=== PATIENT | female | born 1940 | race Caucasian/White ===

== ENCOUNTER 2022-11-09 08:21 | Inpatient (IN) ==
--- NOTE | 2022-10-13 14:39 | PAT Medication Instructions ---
Medication Instructions Date of Service October 13, 2022 Home Medications acetaminophen 500 mg tablet (Tylenol Extra Strength) 500 mg PO Q6H PRN alprazolam 1 mg tablet 1 mg PO HS dicyclomine 10 mg capsule 10 mg PO QAM hydrochlorothiazide 12.5 mg tablet 12.5 mg PO QAM losartan 100 mg tablet 100 mg PO QAM metoprolol tartrate 25 mg tablet 25 mg PO QAM valacyclovir 1 gram tablet 1,000 mg PO TID DO NOT take the morning of surgery dicyclomine 10 mg capsule 10 mg PO QAM hydrochlorothiazide 12.5 mg tablet 12.5 mg PO QAM losartan 100 mg tablet 100 mg PO QAM Take morning of surgery With a small sip of water, OTHERWISE NOTHING TO EAT OR DRINK AFTER MIDNIGHT: acetaminophen 500 mg tablet (Tylenol Extra Strength) 500 mg PO Q6H PRN(if needed) metoprolol tartrate 25 mg tablet 25 mg PO QAM valacyclovir 1 gram tablet 1,000 mg PO TID Take evening before surgery acetaminophen 500 mg tablet (Tylenol Extra Strength) 500 mg PO Q6H PRN(if needed) alprazolam 1 mg tablet 1 mg PO HS valacyclovir 1 gram tablet 1,000 mg PO TID Other Notes If you have any questions please call us at [phone] or [phone] or [phone] or [phone]
--- NOTE | 2022-10-20 14:20 | Anesthesiology Consultation ---
Date of Service October 20, 2022 Assessment & Plan (1) Encounter for pre-operative examination: - Outpatient joint assessment: Patient is currently scheduled for inpatient pathway. If re-evaluated pending system levels during current pandemic/surgeon requests outpatient pathway, patient is not acceptable candidate for outpatient joint program from anesthesia standpoint. - Case discussed with Dr. Lamb who advised pt is acceptable to proceed without further evaluation or testing from his standpoint. Chart Review Chart Review: Acceptable Risk for Surgery and Patient seen in Pre Admission Testing Teaching & Discussion Pre-Anesthesia Teaching/Discussion Notes: Instructed NPO after midnight before surgery, except medications with 15 cc of water. Medication instructions provided according to the PAT guidelines. History Surgery Operation Date: 11/02/22 08:40 Proposed Procedures p Right Total Knee Arthroplasty - Aneudy Garza DO Height/Weight Height: 4 ft 10.5 in Weight: 50.5 kg Allergies Allergy/AdvReac Type Severity Reaction Status Date / Time acetaminophen [From Percocet] AdvReac Mild Gastrointestinal Verified 10/13/22 10:51 Upset oxycodone [From Percocet] AdvReac Mild Gastrointestinal Verified 10/13/22 10:51 Upset Medications Home Medications Medication Instructions Recorded Confirmed Last Taken acetaminophen 500 mg tablet 500 mg PO Q6H PRN Pain 10/13/22 10/13/22 Unknown (Tylenol Extra Strength) alprazolam 1 mg tablet 1 mg PO HS 10/13/22 10/13/22 Unknown dicyclomine 10 mg capsule 10 mg PO QAM 10/13/22 10/13/22 Unknown hydrochlorothiazide 12.5 mg tablet 12.5 mg PO QAM 10/13/22 10/13/22 Unknown losartan 100 mg tablet 100 mg PO QAM 10/13/22 10/13/22 Unknown metoprolol tartrate 25 mg tablet 25 mg PO QAM 10/13/22 10/13/22 Unknown valacyclovir 1 gram tablet 1,000 mg PO TID 10/13/22 10/13/22 Unknown Past Medical History Medical History (Updated 10/20/22 @ 14:54 by Julianna Portillo PA-C) Anxiety GERD (gastroesophageal reflux disease) controlled, stable per pt Hx of peritonitis s/p hysterectomy > with surgery to repair colon, had been nicked during hyster Hypertension controlled, stable per pt IBS (irritable bowel syndrome) Shingles on back, starting to crust over, will finish treatment today (10/13/22) Tremor head, hands with action/stress-chronic per pt without change or worsening Vertigo Patient denies h/o stroke, seizures, heart attack, heart failure, DM, blood clots or blood transfusions. Exercise / Class Metabolic Activity III < 4 Walking/Shop/Light housework (denies chest discomfort or SOB with usual activities) Past Surgical History Surgical History Fusion of spine lumbar History of cataract surgery bilat History of cholecystectomy History of colonoscopy History of hysterectomy History of surgery on arm right arm with hardware History of tonsillectomy Hx of vein stripping Past Anesthesia History No Family Hx of Anesthesia Complications and Other (slow to wake) History of PONV No Hx of PONV and No Hx of Motion Sickness Social History Smoking Status: Never smoker Do You Dip or Chew Tobacco: No Hx Alcohol Use: No Hx Substance Use: No substance use type: does not use Review of Systems Occasional snoring, denies witnessed apneas. Patient denies chest pain, shortness of breath, dyspnea on exertion, fever, chills, cough, wheezing, or palpitations. Physical Exam Vital Signs Vitals BP 135/80 P 65 TEMP 98.1 SP02 97% on RA RESP 18 Physical Full cervical extension range of motion without pain TMD3.5 finger breadths Mallampati Score 3 Dentition: intact, several caps/crowns; denies chipped or loose teeth, implants or bridges Lungs: normal respiratory effort. Clear throughout to auscultation, no ad ventitious breath sounds Cardiac: regular rate and rhythm, no murmurs noted Carotid arteries: negative bruit bilat Lab Results Anesthesia Preop Results Results Anesthesia Widget: WBC 10.49 K/ul (4.8-10.8) 10/20/22 Hgb 15.2 g/dl (12.0-16.0) 10/20/22 Hct 44.4 % (34.1-44.9) 10/20/22 Plt 248 K/uL (130-400) 10/20/22 Na 137 mmol/L (136-145) 10/20/22 K 3.6 mmol/L (3.5-5.1) 10/20/22 Cl 99 mmol/L (98-107) 10/20/22 CO2 32 mmol/L (21-32) 10/20/22 BUN 29 mg/dl (6-23) H 10/20/22 Creat 0.83 mg/dl (0.6-1.2) 10/20/22 Glucose Level 116 mg/dl (70-99(Fasting)) H 10/20/22 PT 10.6 Seconds (9.0-12.0) 10/20/22 PTT 22.5 Seconds (21.0-31.0) 10/20/22 INR 1.0 (0.9-1.1) 10/20/22 HA1c 5.8 % (4.5-5.6) H 10/20/22 Urine Color Yellow 10/20/22 Urine Appearance Clear (Clear) 10/20/22 Urine pH 7.0 (4.5-7.5) 10/20/22 Urine Specific [place] 1.019 (1.000-1.030) 10/20/22 Urine Protein Negative (Negative) 10/20/22 Urine Glucose (UA) Negative (Negative) 10/20/22 Urine Ketones Negative (Negative) 10/20/22 Urine Blood Negative (Negative) 10/20/22 Urine Nitrite Negative (Negative) 10/20/22 Urine Bilirubin Negative (Negative) 10/20/22 Urine Urobilinogen Negative (Negative) 10/20/22 Urine Leukocyte Esterase Trace (Negative) H 10/20/22 Urine WBC (Auto) 1-5 /hpf (0-5) 10/20/22 Urine RBC (Auto) 5-10 /hpf (0-4) H 10/20/22 Urine Hyaline Casts (Auto) 1-5 /lpf (0-5) 10/20/22 Urine Epithelial Cells (Auto) 20-30 /lpf (0-5) H 10/20/22 Urine Bacteria (Auto) Negative (Negative) 10/20/22 Blood Type A Negative 10/20/22 Antibody Screen NEGATIVE 10/20/22 Testing Electrocardiogram Date: 10/20/22 NSR, rate 66 bpm Chest X-Ray Date: 10/20/22 No prior studies are available for comparison at the time of dictation. The heart is top normal for projection and noting atherosclerotic calcification of the thoracic aorta. There is elevation of the right hemidiaphragm with bibasilar scarring/atelectasis. No airspace consolidation or large pleural effusion is identified. There is no pneumothorax. The skeletal structures are osteopenic. Degenerative change and kyphoscoliosis is seen in the thoracic spine. There are thoracic compression deformities with evidence of prior vertebroplasty arthritic change is seen in the shoulders. There are healed bilateral rib fractures. IMPRESSION: No active disease in the chest. COVID-19 Risk Screen Screening Information COVID-19 Screen Date: 10/20/22 Exposure 21 Days Family/Household +COVID Last 21 Days: No Exposure 10 Days Any COVID Exposure Last 10 Days: No Symptoms Last 10 Days Experienced COVID Sx Last 10 Days: No + COVID 0-90 Days COVID + in Last 0-90 Days: No
--- NOTE | 2022-10-25 09:56 | History & Physical Report ---
Date of Service October 25, 2022 Date of surgery: 11/02/22 Procedure: Right Total Knee Arthroplasty Surgeon: Aneudy Garza Assessment & Plan (1) Arthritis of right knee: Plan: at is point time patient has failed conservative measures like proceed with right total knee replacement. Plan to be discharged home with home health physical therapy x2 weeks. Placed on aspirin 81 mg twice a day for 1 month postop for DVT prophylaxis. We will have a follow-up appointment in our office 2 weeks postop sooner if she is having any problems. Otherwise has no other questions or concerns The risks and benefits have been discussed including, but not limited to, risk o f infection, nerve injury, stiffness, loss of motion, failure to improve, etc. Reasonable outcomes and options of treatment were discussed. An explanation of appropriate alternatives to the procedure that may be advantageous were discussed and their risks and benefits, as well as the risks and benefits of not proceeding with treatment. I offered to answer any additional inquiries concerning the treatment involved. All the patient's questions were answered. The patient is agreeable, understanding of the treatment plan and alternatives, and wishes to proceed with the treatment plan. History of Present Illness Chief Complaint: Right knee pain Primary Care Provider: Madhu Boothe is a pleasant 82 year old female presents for preop evaluation prior to right total knee replacement. She states she is having pain in his knee for man y years now which is gradually worsened and is now affecting her daily activities including walking standing. She tried and failed previous corticosteroid injection as well as viscosupplementation with minimal relief. She tried oral anti-inflammatories and Tylenol as well. At this point time is felt conservative measures would like to proceed with a right total knee replacement Allergies Allergy/AdvReac Type Severity Reaction Status Date / Time acetaminophen [From Percocet] AdvReac Mild Gastrointestinal Verified 10/13/22 1 0:51 Upset oxycodone [From Percocet] AdvReac Mild Gastrointestinal Verified 10/13/22 10:51 Upset Home Medications Medication Instructions Recorded Confirmed Type acetaminophen 500 mg tablet 500 mg PO Q6H PRN Pain 10/13/22 10/13/22 History (Tylenol Extra Strength) alprazolam 1 mg tablet 1 mg PO HS 10/13/22 10/13/22 History dicyclomine 10 mg capsule 10 mg PO QAM 10/13/22 10/13/22 History hydrochlorothiazide 12.5 mg tablet 12.5 mg PO QAM 10/13/22 10/13/22 History losartan 100 mg tablet 100 mg PO QAM 10/13/22 10/13/22 History metoprolol tartrate 25 mg tablet 25 mg PO QAM 10/13/22 10/13/22 History valacyclovir 1 gram tablet 1,000 mg PO TID 10/13/22 10/13/22 History Past Med/Surg History Medical History Anxiety GERD (gastroesophageal reflux disease) controlled, stable per pt Hx of peritonitis s/p hysterectomy > with surgery to repair colon, had been nicked during hyster Hypertension controlled, stable per pt IBS (irritable bowel syndrome) Shingles on back, starting to crust over, will finish treatment today (10/13/22) Tremor head, hands with action/stress-chronic per pt without change or worsening Vertigo Surgical History Fusion of spine lumbar History of cataract surgery bilat History of cholecystectomy History of colonoscopy History of hysterectomy History of surgery on arm right arm with hardware History of tonsillectomy Hx of vein stripping Social History Smoking Status: Never smoker Second Hand Exposure: No; Hx Alcohol Use: No Hx Substance Use: No Preferred Language: Italian Communication Ability: Effective Cord Splicer Required: No Beliefs That Will Affect Care: None Current Living Situation: Spouse Feels Safe at Home: Yes Review of Systems Review of Systems: All systems reviewed & are unremarkable except as noted in HPI & below Constitutional: no fever, no chills and no sweats Respiratory: no cough and no dyspnea Cardiovascular: no chest pain, no dyspnea and no orthopnea Gastrointestinal: no abdominal pain, no nausea and no vomiting Musculoskeletal: as per Subjective / HPI Physical Exam Physical Exam: HT: 4ft 10.5in WT: 50.5kg Constitutional: WD/WN, vitals as above no acute distress Respiratory: normal respiratory effort, lungs clear to auscultation no respiratory distress, no labored breathing and does not use accessory muscles Cardiovascular: RRR, no murmur, no edema Gastrointestinal (Abdomen): normal bowel sounds, soft, nontender, no hepatosplenomegaly Musculoskeletal: Knee: + knee abnormal to inspection (RIGHT KNEE: ), + effusion (+1 effusion), + limited ROM of knee (ROM 0/3/110), + knee ROM with cre pitation, + joint line tenderness (medial joint line) and + Fernando's sign positive; no deformity, no skin erythema, no ecchymosis, no valgus laxity, no varus laxity, anterior drawer test negative, Yahir's sign negative and pivot shift test negative Results & Data Results & Data ([facility]) Diagnostic Findings Right Knee X-ray: Right knee series showing advanced degenerative changes to the right knee, narrowing of the lateral compartment and patello-femoral joint with patellar spurring noted, findings showing joint space narrowing of the lateral compartment and patello-femoral joint, osteophyte formation and subchondral sclerosis noted. overall valgus alignment. no acute bony pathology noted.
[~2022-11-09 08:21] MED LIST: ACETAMINOPHEN 500 MG TAB PO SCH; BUPIVACAINE 0.5 % 5 MG/1 ML PF 10ML VIAL ONE; CeleBREX 200 MG CAP PO SCH; EPINEPHrine INJ 1 MG/ML AMP ONE; FAMOTIDINE 20 MG TAB PO SCH; GABAPENTIN 300 MG CAP PO SCH; LR 500ML BOLUS, THEN 15ML/HR IV SCH; METOCLOPRAMIDE HCL 10 MG TABLET PO SCH; ROPIVACAINE 0.5% 5 MG/ML 30 ML VIAL ONE; ROPIVACAINE 0.5% HCL/PF 150 MG, BUPIVACAINE 0.75% MPF 20 ML, EPINEPHrine 30MG/30ML (OR ... INSTIL SCH; TRANEXAMIC ACID 1,000 MG **IV Intra-op IV SCH; TRANEXAMIC ACID 1,000 MG **IV Pre-op IV SCH; ceFAZolin 2000MG 2,000 MG/15 ML SYR IV SCH; dexAMETHasone 4 MG TAB PO SCH
[2022-11-09] MEDS ORDERED: MIDAZOLAM HCL 1 MG/ML 2ML VIAL ONE (10:10)
[2022-11-09] MEDS ORDERED: ORTHO JOINT ANESTHETIC ONE (12:05)
[2022-11-09] MEDS ORDERED: PROPOFOL IV EMULSION 10 MG/ML 20 ML VIAL IV ONE ×2 (12:18→12:50)
--- NOTE | 2022-11-09 12:33 | History & Physical Bridge Note ---
Date of Service November 09, 2022 History & Physical Bridge Note I have examined the patient, reviewed the History & Physical and in the interval since the performance of the History & Physical I have noted the following changes of clinical significance: no changes noted
[2022-11-09] MEDS ORDERED: PROMETHAZINE HCL 12.5 MG in SODIUM CHLORIDE 0.9% 50 ML IV PRN (12:37)
[2022-11-09] MEDS ORDERED: ONDANSETRON INJ 2 MG/ML 2 ML VIAL IV PRN ×2 (12:37→15:49)
[2022-11-09] MEDS ORDERED: fentaNYL citrate 100 MCG/2 ML VIAL IV PRN (12:37)
[2022-11-09] MEDS ORDERED: HYDROmorphone INJ 1 MG/ML SYRINGE IV PRN (12:37)
[2022-11-09] MEDS ORDERED: ePHEDrine sulfate 50 MG/ML AMP IV PRN (12:37)
[2022-11-09] MEDS ORDERED: ATROPINE SULFATE 0.1 MG/ML 10ML SYR IV PRN (12:37)
--- NOTE | 2022-11-09 13:15 | Operative Report ---
Post Operative Report Pre & Post Diagnosis Operation Date: 11/09/22 10:55 Pre-Op Diagnosis: Primary Osteoarthritis Knee Right Post-Op Diagnosis: Primary Osteoarthritis Knee Right I identified the patient and participated in the time-out.: Yes Procedure Operation Date: 11/09/22 10:55 Actual Procedures p Right Total Knee Arthroplasty(Right) utilizing [employer] journey 2 patient matched total knee arthroplasty size femur 3 tibia to polytwelve patella 26 karen Garza DO Surgeon Aneudy Garza DO Accounting Tutor DANIKA Bronson Estimated Blood Loss 5 Findings Consistent with Post-Op Diagnosis Patient presents with severe end-stage tricompartmental DJD varus alignment subchondral sclerosis marginal osteophytes for a total knee arthroplasty patient's failed attempted conservative management Specimens Bone and cartilage Drains Medium bore Hemovac Anesthesia Type MAC Epidural Regional Complications none Disposition Accompanied Patient To Recovery: No Disposition: Recovery Room Indications Patient presents after failed attempted conservative management occluding physical therapy anti-inflammatories relative rest activity modification corticosteroid injection viscosupplementation above intraoperative findings were noted Description of Procedure After proper prepping and draping of the Right lower extremity anterior midline incision was made over the region of the extensor extensor mechanism after meticulous hemostasis was obtained and maintained in subcutaneous tissues a medial parapatellar incision was made The patella was subluxed lateralward the medial lateral gutter were cleaned from any hypertrophic synovitis and scar tissue of the distal femoral block was placed and the distal femoral osteotomy cut was made subsequently the chamfers anterior and posterior osteotomy cuts were made utilizing the 4-in-1 block the tibia was subsequently subluxed anter iorward medial and ateral meniscal remnants were excised in their entirety remnants of the anterior and posterior cruciate ligaments were excised in their entirety excellent exposure of the proximal tibia was obtained the tibial osteotomy guide was placed on the proximal tibial osteotomy cut was made once again the knee was irrigated with copious amounts of sterile saline solution the patella was subsequently everted lateralward thickened scar tissue around the patella was removed the patella was subsequently cut utilizing a freehand technique and was drilled prepared for final preparation and placement of patella socially flexion-extension gaps were checked and the equal and symmetric trials were placed to the appropriate femoral and tibial trials with poly-spacer being placed for equal flexion and extension gaps and full range of motion including extension to 0 and flexion to 140 the trial components after having been taken to recovery range of motion was subsequently removed meticulous hemostasis was obtained and maintained subsequently a knee block injection of joint cocktail including ropivacaine 0.5% 150 mg. Bupivacaine 0.5% epinephrine 1-200,030 mL's toradol 30 mg dexamethasone 4 mg ketamine 10 mg clonidine 100 micrograms normal saline solution 30 mg was infiltrated into the soft tissues of the posterior knee medial lateral gutters and periosteal synovium special atte ntion was paid to protect neurovascular structures at all times subsequently trial components having been removed the knee was irrigated with sterile saline solution. debris was removed the proximal tibia was subsequently prepared and was made ready for the placement of the tibial component tibial component was also cemented and tamped into position the femoral component was subsequently placed and cemented in the position the patellar component was subsequently cemented in position because hemostasis once again obtained and maintained wound having been thoroughly irrigated with debridement and debridement lavage was performed as well as a medial parapatellar incision closed with #1 Vicryl in interrupted fashion subcutaneous was closed with #2 Vicryl skin was closed with skin clips. PA-C was necessary for prepping and drapping as well as wound closure of deep fascia Sub cutaneous tissue and skin and was necessary for the case. A sterile compressive dressing was placed patient was taken to recovery in stable condition of report dictated by Greg I attest to the content of the Intraoperative Record and any orders documented therein. Any exceptions are noted below.Due to the complex nature of the procedure, the entire surgery was performed with the operational assistance of DANIKA Bronson. The mental health assistant, under direct supervision, was involved in the actual performance of all aspects of the surgical procedure including hemostasis, tissue retraction and incision, instrument management, patient positioning, and wound closure. I attest to the content of the Intraoperative Record and any orders documented therein. Any exceptions are noted below.
--- NOTE | 2022-11-09 14:30 | Anesthesiology Progress Note ---
Date of Service November 09, 2022 Anesthesia Post Procedure Vital Signs Vital Signs: Temp Pulse Pulse Resp BP Pulse Ox O2 Del Method 11/09/22 14:10 102 H 22 127/73 98 Oxymask 11/09/22 14:00 37.0 C 107 H 14 114/70 92 Room Air 11/09/22 09:00 36.7 C 64 18 187/81 H 95 O2 Flow Rate 11/09/22 14:10 5 11/09/22 14:00 11/09/22 09:00 Transfer of Care Handoff Completed per policy Notes Mental Status: alert / awake / arousable and participated in evaluation Nausea / Vomiting: adequately controlled Pain: adequately controlled Airway Patency, RR, SpO2: stable & adequate BP & HR: stable & adequate Hydration State: stable & adequate Neuraxial Anesthesia: was administered and sensory block is resolving Anesthetic Complications: no major complications apparent and Pt Satisfied with anesthetic care
--- NOTE | 2022-11-09 15:17 | XRay Report ---
XR knee RT 1 or 2V routine CLINICAL HISTORY: Surgical Post Op TECHNIQUE: 2 views of the right knee were obtained. Comparison: None available at the time of this dictation. FINDINGS: Patient is status post total knee arthroplasty with expected postsurgical changes including soft tiss ue swelling and subcutaneous emphysema. No periarticular lucency or hardware fracture is seen. IMPRESSION: Expected postoperative appearance status post placement of total knee arthroplasty. ACT 112: Negative or not required by law. Electronically signed by: Loy Holland M.D. 11/09/2022 3:15 PM
[2022-11-09] MEDS ORDERED: NALOXONE HCL 0.4 MG/1 ML VIAL/CARP IV PRN (15:49)
[2022-11-09] MEDS ORDERED: diphenhydrAMINE Capsule 25 MG CAP PO PRN (15:49)
[2022-11-09] MEDS ORDERED: MAGNESIUM HYDROXIDE SUSP 30 ML UDC PO PRN (15:49)
[2022-11-09] MEDS ORDERED: ALUMINUM/MAGNESIUM SUSP 30 ML UDC PO PRN (15:49)
[2022-11-09] MEDS ORDERED: KETOROLAC TROMETHAMINE 15 MG/ML VIAL IV PRN (15:49)
[2022-11-09] MEDS ORDERED: HYDROmorphone INJ 0.5 MG/0.5 ML SYR IV PRN (15:49)
[2022-11-09] MEDS ORDERED: METOCLOPRAMIDE HCL INJ 5 MG/ML 2 ML VIAL IV PRN (15:49)
[2022-11-09] MEDS ORDERED: bisacodyL 10 MG SUPP PR PRN (15:49)
[2022-11-09] MEDS: SODIUM CHLORIDE 0.9% 1000ML 1,000 ML IV SCH (16:12)
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
[2022-11-09] MEDS: PANTOprazole 40 MG TAB PO SCH (17:45)
[2022-11-09] MEDS: ALPRAZolam 0.5 MG TABLET PO SCH (20:50)
[2022-11-09] MEDS: ASPIRIN 81 MG ECTAB PO SCH (20:51)
[2022-11-09] MEDS: SENNA 8.6 MG TAB PO SCH (20:51)
[2022-11-09] MEDS: DOCUSATE SODIUM 100 MG CAP PO SCH (20:52)
[2022-11-09] MEDS: ceFAZolin 2000MG 2,000 MG/15 ML SYR IV SCH (20:53)
[2022-11-09] MEDS: CeleBREX 200 MG CAP PO SCH (20:53)
[2022-11-09] MEDS: HYDROCODONE/ACETAMOPHEN 5/325MG TAB PO PRN (22:00)
[2022-11-10] MEDS: SODIUM CHLORIDE 0.9% 1000ML 1,000 ML IV SCH (01:56)
[2022-11-10] MEDS: ceFAZolin 2000MG 2,000 MG/15 ML SYR IV SCH (04:21)
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
[2022-11-10] MEDS: HYDROCODONE/ACETAMOPHEN 5/325MG TAB PO PRN ×2 (06:19→19:25)
[2022-11-10 07:53] LABS: BUN Creatinine Ratio 22.7 (10-20); Calcium 8.8 mg/dl (8.5-10.1); Creatinine Clr Calc Pharmacy 44.4 ml/min; Est GFR (Non-African American) 82.8 ml/min; Potassium 3.3 mmol/L (3.5-5.1)
[2022-11-10] MEDS: DICYCLOMINE HCL 10 MG CAP PO SCH (08:12)
[2022-11-10] MEDS: CeleBREX 200 MG CAP PO SCH ×2 (08:13→20:12)
[2022-11-10] MEDS: PANTOprazole 40 MG TAB PO SCH (08:13)
[2022-11-10] MEDS: MULTIVITAMIN TAB PO SCH (08:14)
[2022-11-10] MEDS: ASPIRIN 81 MG ECTAB PO SCH ×2 (08:14→20:13)
[2022-11-10] MEDS: DOCUSATE SODIUM 100 MG CAP PO SCH ×2 (08:14→20:12)
[2022-11-10] MEDS: LOSARTAN POTASSIUM 50 MG TAB PO SCH (08:15)
[2022-11-10] MEDS: hydroCHLOROthiazide 25 MG TAB PO SCH (08:15)
[2022-11-10 09:28] LABS: Hematocrit (blood only) 34.9 % (37.0-47.0); Hemoglobin 12.4 g/dl (12.0-16.0); Mean Corpuscular Hemoglobin 32.2 pg (25.0-34.0); Mean Corpuscular Hgb Conc 35.5 g/dL (32.0-36.0); Mean Corpuscular Volume 90.6 fL (80.0-100.0); Mean Platelet Volume 10.2 fL (9.4-12.4); Platelet Count 170 K/uL (130-400); RDW Standard Deviation 42.8 fL (36.4-46.3); Red Blood Count 3.85 M/uL (4.20-5.40); White Blood Count 10.58 K/ul (4.8-10.8)
--- NOTE | 2022-11-10 13:09 | Hospitalist Progress Note ---
Date of Service November 10, 2022 Assessment & Plan (1) Status post right knee replacement: Plan: -The patient is currently afebrile, hemodynamically stable, and stable on RA -Pain control, perioperative abx, IV fluids, and DVT PPX per the primary team -Agree with AM CBC and BMP -Added daily pantoprazole for stress ulcer prophylaxis -Patient reports doing well. -Medicine will sign off. Patient likely davi be discharged by ortho. -Patient did have some intermittent confusion, but this should not keep patient in the hospital. -As confusion likely worsens when patient's are not in their normal environment. -Please contact us with any questions or concerns (2) Hypertension: Plan: -Stable -Continue losartan and HCTZ as long as the patient he hemodynamically stable and renal function is stable (3) GERD (gastroesophageal reflux disease): Plan: -Pantoprazole ordered at the time of the consult (4) Anxiety: Plan: -Continue xanax -Would recommend PCP wean the patient off of chronic xanax therapy and swithc her to a safer antidepressant for anxiety due to her age and risk of neurologic side effects Plan The patiennt was discussed with Dr. Lucas at the time of the consult Admission and Anticipated Discharge Date Admission Date: November 09, 2022 Subjective Patient reports no longer having confusion. Spouse is at bedside. Patient reports feeling well. Review of Systems Review of Systems: All systems reviewed & are unremarkable except as noted in HPI & below Physical Exam Constitutional: WD/WN, vitals as above Eyes: PERRL, conjunctivae normal, anicteric sclerae ENMT: external ear and nose normal, oropharynx normal Neck: trachea midline, no thyromegaly Respiratory: normal respiratory effort, lungs clear to auscultation Cardiovascular: RRR, no murmur, no edema Gastrointestinal (Abdomen): normal bowel sounds, soft, nontender, no hepatosplenomegaly Musculoskeletal: no cyanosis or clubbing, extremities motor strength 5/5 Skin: no rashes, warm and dry Neurologic: PERRL, EOMI, accommodation nl, no face palsy, no dysarthria Psychiatric: A+Ox3, euthymic affect Results & Data Results & Data ([facility]) Vital Signs (Past 12 Hours) Vital Signs Temp Pulse Pulse Resp BP BP Pulse Ox 11/10/22 11:14 36.5 C 60 20 137/72 95 11/10/22 08:45 36.6 C 61 20 164/74 H 95 11/10/22 07:24 36.7 C 65 24 147/76 H 95 11/10/22 03:48 80 20 180/84 H 95 11/10/22 03:20 36.4 C L 89 22 196/104 H 188/89 H 95 O2 Del Method 11/10/22 11:14 Room Air 11/10/22 08:45 Room Air 11/10/22 07:24 Room Air 11/10/22 03:48 Room Air 11/10/22 03:20 Room Air PG Care Time/CCT Total # of Minutes Spent Total Time Spent with Patient: Total time spent is greater than 50% in coordination of care (as documented) at patient's floor/unit and/or counseling patient: Coding Level of Care Code 92987 SUB INP/OBS CARE 2/35MIN Diagnoses Status post right knee replacement Z96.651 Hypertension I10 GERD (gastroesophageal reflux disease) K21.9 Anxiety F41.9
[2022-11-10] MEDS: ALPRAZolam 0.5 MG TABLET PO SCH (20:11)
[2022-11-10] MEDS: SENNA 8.6 MG TAB PO SCH (20:13)
[2022-11-11] MEDS: HYDROCODONE/ACETAMOPHEN 5/325MG TAB PO PRN ×4 (03:51→18:27)
[2022-11-11] MEDS: hydroCHLOROthiazide 25 MG TAB PO SCH (08:33)
[2022-11-11] MEDS: DOCUSATE SODIUM 100 MG CAP PO SCH ×2 (08:33→20:02)
[2022-11-11] MEDS: ASPIRIN 81 MG ECTAB PO SCH ×2 (08:33→20:00)
[2022-11-11] MEDS: CeleBREX 200 MG CAP PO SCH ×2 (08:33→20:01)
[2022-11-11] MEDS: DICYCLOMINE HCL 10 MG CAP PO SCH (08:33)
[2022-11-11] MEDS: PANTOprazole 40 MG TAB PO SCH (08:34)
[2022-11-11] MEDS: MULTIVITAMIN TAB PO SCH (08:34)
[2022-11-11] MEDS: LOSARTAN POTASSIUM 50 MG TAB PO SCH (08:34)
--- NOTE | 2022-11-11 10:46 | Orthopedic Progress Note ---
Date of Service November 11, 2022 Assessment & Plan (1) History of total right knee replacement: Plan: POD #2 s/p Right TKA PT/OT protocols. Weightbearing as tolerated. Physical therapist stated that the patient did "ok" in PT but may benefit from another day. Will see final recommendations from PT. DVT prophylaxis-aspirin p.o. twice daily, SCDs. Pain management as written. Confusion-question of improving. Nursing states there is a question that she still having some moments of confusion at times. Will discuss with medicine service. (spoke to Dr Galeas. Question some mild baseline confusion but if due to hospital setting, consider dc to home. Will await for above recommendations) Admission and Anticipated Discharge Date Admission Date: November 09, 2022 Subjective Postop day 2 Patient in the process of working with physical therapy. In speaking with the physical therapist, he felt that the patient was having still a bit of confusion. Nursing relates same. Currently she is sitting in her chair at the bedside and states she feels well overall. She currently has a small amount of tremor in her hands which she states she gets whenever she meets people that she does not know. We discussed the possibility of going home today versus tomorrow. She was initially stating today however she then stated about staying till tomorrow. Will discuss with medicine service about her mentation and possibly discussed with family when they come in. Physical Exam Physical Exam: Dressings are clean, dry, and intact. Calves are soft nontender. Neurovascular intact. Toes are mobile. Results & Data ([facility]) Vital Signs (Past 12 Hours) Vital Signs Temp Pulse Pulse Resp BP Pulse Ox O2 Del Method 11/11/22 07:40 36.8 C 78 18 114/60 93 Room Air 11/11/22 08:00 Room Air 11/10/22 23:21 36.7 C 68 18 147/89 H 95 Room Air
[2022-11-11 11:48] LABS: Hemoglobin 11.7 g/dl (12.0-16.0); Mean Corpuscular Hemoglobin 32.1 pg (25.0-34.0); Mean Corpuscular Hgb Conc 35.5 g/dL (32.0-36.0); Mean Corpuscular Volume 90.7 fL (80.0-100.0); Mean Platelet Volume 9.1 fL (9.4-12.4); Platelet Count 217 K/uL (130-400); RDW Coefficient of Variation 13.3 % (11.5-14.5); RDW Standard Deviation 44.4 fL (36.4-46.3); Red Blood Count 3.64 M/uL (4.20-5.40); White Blood Count 8.77 K/ul (4.8-10.8)
[2022-11-11 12:37] LABS: Calcium 9.1 mg/dl (8.5-10.1); Potassium 2.9 mmol/L (3.5-5.1)
[2022-11-11 12:42] LABS: BUN Creatinine Ratio 22.1 (10-20); Est GFR (African American) 83.9 ml/min; Est GFR (Non-African American) 72.4 ml/min
[2022-11-11] MEDS ORDERED: POTASSIUM CHLORIDE CRTAB 20 MEQ TABCR PO STA (12:54)
[2022-11-11] MEDS: MAGNESIUM OXIDE 400 MG TAB PO SCH ×2 (13:37→20:02)
[2022-11-11] MEDS: POTASSIUM CHLORIDE CRTAB 20 MEQ TABCR PO SCH ×2 (13:41→20:05)
[2022-11-11] MEDS: ALPRAZolam 0.5 MG TABLET PO SCH (19:59)
[2022-11-11] MEDS: SENNA 8.6 MG TAB PO SCH (20:01)
--- NOTE | 2022-11-11 22:15 | Hospitalist Progress Note ---
Date of Service November 11, 2022 Assessment & Plan (1) Status post right knee replacement: Plan: -The patient is currently afebrile, hemodynamically stable, and stable on RA -Pain control, perioperative abx, IV fluids, and DVT PPX per the primary team -Agree with AM CBC and BMP -Added daily pantoprazole for stress ulcer prophylaxis -Patient reports doing well. -Medicine will sign off. Patient likely davi be discharged by ortho. -Confusion appears to have improved. -Saw patient on 11/11 due to electolyte abnormalities. -Patient received potassium and magnesium. will recheck levels in AM. -Please contact us with any questions or concerns (2) Hypertension: Plan: -Stable -Continue losartan and HCTZ as long as the patient he hemodynamically stable and renal function is stable (3) GERD (gastroesophageal reflux disease): Plan: -Pantoprazole ordered at the time of the consult (4) Anxiety: Plan: -Continue xanax -Would recommend PCP wean the patient off of chronic xanax therapy and swithc her to a safer antidepressant for anxiety due to her age and risk of neurologic side effects Plan The patiennt was discussed with Dr. Lucas at the time of the consult Admission and Anticipated Discharge Date Admission Date: November 09, 2022 Subjective 82 yo female reports fee;ing well. Main complaint is her constipation. Review of Systems Review of Systems: All systems reviewed & are unremarkable except as noted in HPI & below Physical Exam Physical Exam: Constitutional: WD/WN, vitals as above Eyes: PERRL, conjunctivae normal, anicteric sclerae ENMT: external ear and nose normal, oropharynx normal Neck: trachea midline, no thyromegaly Respiratory: normal respiratory effort, lungs clear to auscultation Cardiovascular: RRR, no murmur, no edema Gastrointestinal (Abdomen): normal bowel sounds, soft, nontender, no hepatosplenomegaly Musculoskeletal: no cyanosis or clubbing, extremities motor strength 5/5 Skin: no rashes, warm and dry Neurologic: PERRL, EOMI, accommodation nl, no face palsy, no dysarthria Psychiatric: A+Ox3, euthymic affect Results & Data Results & Data ([facility]) Vital Signs (Past 12 Hours) Vital Signs Temp Pulse Resp BP Pulse Ox O2 Del Method 11/11/22 15:52 36.7 C 68 18 167/91 H 94 Room Air PG Care Time/CCT Total # of Minutes Spent Total Time Spent with Patient: Total time spent is greater than 50% in coordination of care (as documented) at patient's floor/unit and/or counseling patient: Coding Level of Care Code 71430 SUB INP/OBS CARE 2/35MIN Diagnoses Status post right knee replacement Z96.651 Hypertension I10 GERD (gastroesophageal reflux disease) K21.9 Anxiety F41.9
[2022-11-12] MEDS ORDERED: traMADol HCL 50 MG TABLET PO PRN (08:55)
--- NOTE | 2022-11-12 09:01 | Orthopedic Progress Note ---
Date of Service November 12, 2022 Assessment & Plan (1) History of total right knee replacement: Plan: POD #2 s/p Right TKA PT/OT protocols. Weightbearing as tolerated. Physical therapist stated that the patient did "ok" in PT but may benefit from another day. Will see final recommendations from PT. DVT prophylaxis-aspirin p.o. twice daily, SCDs. Pain management as written. Hydrocodone dc'd. Tramadol added. Confusion- Improving. Hypokalemia - Noted yesterday. Hospitalist service started repletion. BMP pending this AM. Possible discharge to home today with services. Admission and Anticipated Discharge Date Admission Date: November 09, 2022 Subjective POD 3 Pt awake and alert this AM. Very conversant. Discussed use of narcotic pain medications. She states she does not do well with the stronger meds. We discussed use of Tramadol which she is amenable to. No other complaints. Pain controlled presently. Labs pending. Physical Exam Physical Exam: Viktoriya dressing on but not functioning. Pt inadvertently pulled on the orginal dressing causeing it to malfunction. Nursing tried to reinforce but did not help. Plan for dressing change. Calves are soft, NT. NV intact. Toes mobile. Results & Data ([facility]) Vital Signs (Past 12 Hours) Vital Signs Temp Pulse Resp BP Pulse Ox O2 Del Method 11/12/22 07:00 37.0 C 66 18 154/77 H 93 Room Air 11/11/22 23:07 36.7 C 74 16 146/73 H 95 Room Air
[2022-11-12] MEDS ORDERED: POLYETHYLENE (MIRALAX) 17 GM PACK PO PRN (09:04)
[2022-11-12] MEDS: ASPIRIN 81 MG ECTAB PO SCH (09:04)
[2022-11-12] MEDS: DICYCLOMINE HCL 10 MG CAP PO SCH (09:04)
[2022-11-12] MEDS: hydroCHLOROthiazide 25 MG TAB PO SCH (09:04)
[2022-11-12] MEDS: CeleBREX 200 MG CAP PO SCH (09:04)
[2022-11-12 09:05] LABS: BUN Creatinine Ratio 28.6 (10-20); Calcium 9.1 mg/dl (8.5-10.1); Creatinine Clr Calc Pharmacy 52.3 ml/min; Est GFR (African American) 101.3 ml/min; Est GFR (Non-African American) 87.4 ml/min; Magnesium 1.8 mg/dl (1.7-2.4); Phosphorus 2.4 mg/dl (2.5-4.9); Potassium 4.7 mmol/L (3.5-5.1)
[2022-11-12] MEDS: LOSARTAN POTASSIUM 50 MG TAB PO SCH (09:05)
[2022-11-12] MEDS: DOCUSATE SODIUM 100 MG CAP PO SCH (09:05)
[2022-11-12] MEDS: MULTIVITAMIN TAB PO SCH (09:05)
[2022-11-12] MEDS: PANTOprazole 40 MG TAB PO SCH (09:05)
[2022-11-12] MEDS: MAGNESIUM OXIDE 400 MG TAB PO SCH (09:05)
[2022-11-12] MEDS: POTASSIUM CHLORIDE CRTAB 20 MEQ TABCR PO SCH (09:07)
[2022-11-12] MEDS ORDERED: POT PHOSPHATE MONOBASIC W/ SOD TAB PO SCH (13:00)
== END 2022-11-12 13:51 | disposition home health service (06) | DRG 470 ==
LOC: EDBD → ASU 08:21 → 3N 08:21